=== PATIENT | female | born 1935 | race Caucasian/White ===

== ENCOUNTER 2017-05-04 06:34 | Day surgery (SDC) | payer OTHER ==
[2017-05-03 11:28] VITALS: BMI 24.5
[2017-05-04] VITALS (12 sets, daily range): BP systolic 139–178; BP diastolic 55–93; PULSE 46–60; RESP 16–22; Ht 147.3 cm; Wt 58.0 kg
[~2017-05-04] VITALS: Ht 147.3 cm; Wt 58.0 kg
--- NOTE | 2017-05-04 03:51 | PREOPHP ---
DATE OF ADMISSION: 05/04/2017 HISTORY OF PRESENT ILLNESS: This 72-year-old patient is admitted for elective cataract surgery of the left eye. The patient has had decreased vision in both eyes for the past 8 months. No prior history of eye disease or injury. PAST MEDICAL HISTORY: The patient does have a history of systemic hypertension. MEDICATIONS: Is currently on benazepril and alendronate. ALLERGIES: THERE ARE NO KNOWN ALLERGIES. PHYSICAL EXAMINATION: EYES: On examination, visual acuity with best correction is 20/50 in the right eye and 20/100 in the left eye. 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 Examination of the lens reveals advanced nuclear sclerotic cataracts present in both eyes and there is a posterior subcapsular cataract in the left eye. Applanation tonometry is 18 mmHg. Examination of the retina is within normal limits. DIAGNOSIS: Cataract, left eye. PLAN: Cataract extraction with lens implant, left eye. The risks and alternatives to the surgery have been discussed with the patient as well as the hope for improvement of visual acuity leading to greater ability to perform activities of daily living. The patient understands this and agrees to proceed with surgery. Dictated By: Samy Ramos MD /[email or web address] /Document#: [id number]
[~2017-05-04 06:34] MED LIST: BENA20TA48 PO; CALC-484 PO; CEFAZOLIN 1 GM INJ ONE; DEXAMETHASONE 4 MG/ML 1 ML INJ ONE; EPINEPHrine 1 MG INJ ONE; GENTAMICIN 80 MG INJ ONE; GUAI118L22 PO; LEVO500T72 PO; LIDOCAINE 4% (MPF) 5 ML INJ ONE
[2017-05-04] MEDS ORDERED: ALEN70TA30 PO (07:31)
[2017-05-04] MEDS ORDERED: CIPROFLOXACIN 0.3% 2.5 ML OPH OPER SCH (08:00)
[2017-05-04] MEDS ORDERED: TROPICAMIDE 1% 2 ML OPH OPER SCH (08:00)
[2017-05-04] MEDS ORDERED: DICLOFENAC 0.1% 2.5 ML OPH OPER SCH (08:00)
[2017-05-04] MEDS ORDERED: CYCLOPENTOLATE/PHENYLEPH 2 ML OPH OPER SCH (08:00)
[2017-05-04] MEDS ORDERED: CARBACHOL 0.01% 1.5 ML OPH INJ ONE (08:05)
[2017-05-04] MEDS ORDERED: HYALURONATE/CHONDROITIN 1ML OPH INJ ONE (08:06)
[2017-05-04] MEDS ORDERED: FENTAnyl 50 MCG/ML VIAL IV PRN (09:00)
[2017-05-04] MEDS ORDERED: HYDROmorphONE (0.2 MG/ML) 10ML SYG IV PRN (09:00)
[2017-05-04] MEDS ORDERED: METOCLOPRAMIDE 10 MG INJ IV PRN (09:00)
[2017-05-04] MEDS ORDERED: MEPERIDINE 25 MG INJ IV PRN (09:00)
[2017-05-04] MEDS ORDERED: ONDANSETRON 4 MG INJ IV PRN (09:00)
[2017-05-04] MEDS ORDERED: DIPHENHYDRAMINE 50 MG INJ IV PRN (09:00)
[2017-05-04] MEDS ORDERED: DEXAMETHASONE 4 MG/ML 1 ML INJ INJ ONE (09:20)
[2017-05-04] MEDS ORDERED: CARBACHOL 0.01% 1.5 ML OPH INJ IO ONE (09:20)
[2017-05-04] MEDS ORDERED: CEFAZOLIN 1 GM INJ INJ ONE (09:20)
[2017-05-04] MEDS ORDERED: HYALURONATE/CHONDROITIN 1ML OPH INJ IO ONE ×2 (09:20→09:55)
[2017-05-04] MEDS ORDERED: PROPOFOL 20 ML ONE (09:36)
[2017-05-04] MEDS ORDERED: LIDOCAINE 2% (SDV) 5 ML INJ ONE (09:36)
--- NOTE | 2017-05-09 04:50 | OPR ---
DATE OF OPERATION: 05/04/2017 PREOPERATIVE DIAGNOSIS: Advanced cataract, left eye. POSTOPERATIVE DIAGNOSIS: Advanced cataract, left eye. OPERATION PERFORMED: Cataract extraction with anterior vitrectomy and posterior chamber intraocular lens, left eye. SURGEON: Samy Ramos MD OPERATIVE PROCEDURE: The patient was brought to the operating room and an eye gurney positioned appropriately, attached to electrocardiogram monitor, and given oxygen via nasal cannula. After some intravenous sedation was administered, the patient received local anesthesia using lidocaine 4 percent, given lid block and retrobulbar injection. The patient was then prepped and draped in the usual sterile manner and a speculum was inserted between the lids of the left eye. It was noted that the pupil, despite multiple mydriatic eye drops, had not dilated beyond 4 mm. It was therefore decided that it would be necessary to insert iris hooks to retract the pupil margin in order to have access to the cataract. Four paracentesis incisions were created at the 2, 4, 8 and 10 o'clock positions adjacent to the corneal scleral limbus. Through these openings some DisCoVisc was initially injected into the anterior chamber and then 4 silicone hooks were inserted to grasp the pupil margin and retract the iris. After having done this, the pupil had been enlarged to approximately 6 mm. A 3.0 diopter keratome was used to enter the cornea through the 12 o'clock position in a step corneal incision. Through this opening, the irrigating cystotome was introduced, the anterior chamber was filled with DisCoVisc and an anterior capsulotomy was performed. Balanced salt solution was used for hydrodissection. Phacoemulsification of the lens nucleus was performed in the posterior chamber, however, it was difficult to extract the sectors of the nucleus despite multiple attempts to bring them into the anterior chamber, difficulty was encountered. Ultimately, after the majority of the cataract was removed, there was a break in the posterior capsule, however, the remnants of lens nuclear material was satisfactorily brought into the anterior chamber by means of using DisCoVisc posterior to the lens fragments floating them into the anterior chamber where they were emulsified. Some limited cortical material was then removed. After removal of cortical material was performed, an anterior vitrectomy was performed using a mechanical vitrectomy instrument until no vitreous was present at the lips of the wound. At this point, additional lens cortical material was removed. It was noted that there was sufficient peripheral capsular remnants to support a posterior chamber intraocular lens. Additional DisCoVisc was injected into the anterior chamber of the eye and then a 22.0 diopter posterior chamber intraocular ([employer]ch [employer] Lomb model LI61AL) was inserted in the posterior chamber and placed in the sulcus anterior to the capsular remnants. The lens implant remained stable and centered despite external pressure on the eye on the globe. The 4 iris hooks were then removed from the anterior chamber, Miostat was instilled to constrict the pupil. One 10-0 nylon suture was placed across the wound. Prior to tying this, the DisCoVisc was aspirated from the anterior chamber. The suture was then tied, the ends were cut short, and the knot was buried. Half a cc of dexamethasone and half a cc of Ancef were then injected into the subtenon's space in the inferior conjunctival fornix. The speculum was removed, ciprofloxacin drops placed on the surface of the eye, and the eye was then patched, and then the patient left the operating room in satisfactory condition. Dictated By: Samy Ramos MD /[email or web address] /Document#: [id number] CLAU
== END 2017-05-04 11:30 | disposition home or self-care (01) ==
LOC: SDS 06:34
PROVIDERS: ATTEND Ophthalmology
DX: H25.12 Age-related nuclear cataract, left eye (principal); I10 Essential (primary) hypertension; E11.9 Type 2 diabetes mellitus without complications
CPT/HCPCS: 66984; 82962; J0171; J0690; J1100; J1580; V2632; Z7512; Z7610